=== PATIENT | male | born 1980 | race African-American/Black ===

== ENCOUNTER 2025-06-05 22:17 | Inpatient (IN) | payer OTHER, SELFPAY ==
--- OUTSIDE RECORDS SUMMARY | 2025-06-05 22:24 | XMS_ITS | Continuity of Care Document ---
Author Name [facility] Organization [facility] Care Team Providers Care Special Delivery Messenger Name Role Phone [facility] Unavailable Unavailable Medications Combined list of outpatient medications from Department of Defense and Veterans Affairs facilities.Medications provided include 1) outpatient medications from the last 15 months, and 2) patient-reported medications. Medication Details Route Status Patient Instructions Prescription Expires Prescription Number Last Dispense Date Ordering Provider Order Date Order Qty Source fexofenadin e 180 mg oral tablet fexofena dine 180 mg oral tablet Start Date: 09/22/19 Status: Ordered Repeat number: 1 Ordered 2019 No Facilit y Access fluticasone 50 mcg/inh nasal spray fluticas one 50 mcg/inh nasal spray Start Date: 09/22/19 Status: Ordered Repeat number: 1 Ordered 2019 No Facilit y Access Allergies, Adverse Reactions, Alerts Combined list of allergies from Department of Defense and Veterans Affairs facilities. It does not include entries that were removed or entered in error. Substance Category Reaction Severity Reaction type Status Date Reported Comments Source No Known Allergies Drug allergy (disorder) active 09/06/2019 [place] [address] Immunizations Combined list of available immunizations from the Department of Defense and Veterans Affairs facilities. Immunization Series Date Given Administered By Site Reaction Lot Number CVX Code Drug Accident Report Clerk Status Comments Source SARS-COV-2 (COVID-19) vaccine, mRNA, spike protein, LNP, preservative free, 30 mcg/0.3mL dose 2 2020 [id number] [place], [employer] (PFR) [facility] SARS-COV- 2 (COVID-19 ) vaccine, mRNA, spike protein, LNP, preservat neeta free, 30 mcg/0.3mL dose [facility] SARS-COV-2 (COVID-19) vaccine, mRNA, spike protein, LNP, preservative free, 30 mcg/0.3mL dose 1 2020 [id number] [employer] (PFR) [facility] ed SARS-COV- 2 (COVID-19 ) vaccine, mRNA, spike protein, LNP, preservat neeta free, 30 mcg/0.3mL dose DoD influenza, injectable, quadrivalent, contains preservative 3 2020 [id number] 158 [facility] (SKB) complet ed influenza , injectabl e, quadrival ent, contains preservat neeta DoD SARS-COV-2 (COVID-19) vaccine, UNSPECIFIED 0 2020 213 () Not Given SARS-COV- 2 (COVID-19 ) vaccine, UNSPECIFI ED DoD influenza virus vaccine, unspecified formulation 1 2020 88 Transcribed (TRS) complet ed influenza virus vaccine, unspecifi ed formulati on DoD poliovirus vaccine, inactivated 1 2018 [id number] Sanofi Paste[employer] ([facility]) complet ed polioviru s vaccine, inactivat ed DoD meningococcal polysaccharid e (groups A, C, Y and W-135) diphtheria toxoid conjugate vaccine (MCV4P) 1 2018 [id number] Sanofi Pasteur ([facility]) complet ed meningoco ccal polysacch aride (groups A, C, Y and W-135) diphtheri a toxoid conjugate vaccine (MCV4P) DoD tetanus toxoid, reduced diphtheria toxoid, and acellular pertu is vaccine, adsorbed 1 2018 [id number] [facility] (SKB) complet ed tetanus toxoid, reduced diphtheri a toxoid, and acellular pertussis vaccine, adsorbed DoD Adenovirus, type 4 and type 7, live, oral 1 2018 [id number] 143 [facility] (BRR) complet ed Adenoviru s, type 4 and type 7, live, oral DoD Influenza, injectable, quadrivalent, preservative free 1 2018 [id number] 150 [employer] (SEQ) complet ed Influenza , injectabl e, quadrival ent, preservat neeta free DoD measles virus vaccine 0 2018 05 () Not Given measles virus vaccine DoD rubella virus vaccine 0 2018 06 () Not Given rubella virus vaccine DoD mumps virus vaccine 0 2018 07 () Not Given mumps virus vaccine DoD varicella virus vaccine 0 2018 21 () Not Given varicella virus vaccine DoD hepatitis B vaccine, unspecified formulation 0 2018 45 () Not Given hepatitis B vaccine, unspecifi ed formulati on DoD hepatitis A vaccine, adult dosage 0 2018 52 () Not Given hepatitis A vaccine, adult dosage DoD Encounters Combined list of: 1) Encounters from Department of Veterans Affairs facilities going backup to the last 18 months, not all VA inpatient encounters are included; 2) Encounters from the Department of Defense facilities going backup to 280 months. Location Location Details Encounter Type Encounter Number Reason For Visit Attending Provider ADM Date DC Date Status Disposition [place] [address](Hea ring Conservat ion, BMT) OUTPATIENT [id number] DREW NOBLE 09/04 Released w/o Limitations [facility] [place] [address](H earing Conserv ation, BMT) [place] [address](Opt ometry Clinic BMT [facility]) OUTPATIENT [id number] LILLIAM CLARK 09/04 Released w/o Limitations [facility] [place] [address](O ptometr y Clinic BMT [facility]) [place] [address](Tra [facility]) OUTPATIENT [id number] Notes Entered by: JORDAN SCHULTZ 05 Sep 2019 1529 ------- ------- ------- ------- -- Strep Prophyl TOMMY Meléndez 09/05 Released w/o Limitations [facility] [place] [address]([facility] d) [place] [address](JACKSON Armendariz) OUTPATIENT [id number] Notes Entered by: MARY MADRID 13 Sep 2019 1000 ------- ------- ------- ------- -- CANDIDO Romero 09/13 Released w/o Limitations [facility] [place] [address](Chandrakant Armendariz) [place] [address]([facility]) OUTPATIENT [id number] Notes Entered by: Simone PANDYA 22 Sep 2019 1101 ------- ------- ------- ------- -- ?Common Cold=?F MIKE HERNANDEZ 09/22 [facility]itations [facility] [place] [address]([facility] simone) [facility] Blue) OUTPATIENT [id number] needs TERRIE Garcia 11/30 Released with Work/Duty Limitations [facility](P [facility] Multi [facility] Blue) [place] [address](AFN G [address]FM) OUTPATIENT [id number] Notes Entered by: GABRIEL SMITH 30 Jun 2020 0815 ------- ------- ------- ------- -- prescri ption GABRIEL SMITH 06/30 Released w/o Limitations [facility] [place] [address](A FNG [address] S[address]FM) [place] [address](AFN G [address] Sq-FM) OUTPATIENT [id number] Notes Entered by: TETO SIMPSON 05 Feb 2021 0956 ------- ------- ------- ------- -- Annual Audiogr am GABRIEL SMITH 02/05 Released w/o Limitations [facility] [place] [address](A FNG [address] Sq-FM) [place] [address](AFN G [address] Sq-FM) OUTPATIENT [id number] Notes Entered by: GABRIEL SMITH 27 Jul 2021 0826 ------- ------- ------- ------- -- COVID vaccine GABRIEL SMITH 07/27 [facility] [place] [address](A FNG [address]q-FM) [place] [address](AFN G [address]FM) OUTPATIENT [id number] Notes Entered by: JM SHELDON 18 Jan 2022 1409 ------- ------- ------- ------- -- Audiogr am/PHAQ GABRIEL SMITH NOONE 01/18 [facility] Lim[facility] [place] [address](A FNG [address] Med Sq-FM) [id number] MDG Care Not Rendered [id number] 09/26 Discharge Disposition: Home or Self Care [id number] MDG [facility] Between Visit 03/21 Discharge Disposition: Home or Self Care zzJoint Umbrell a Org Procedures Combined list of: 1) Procedures from Department of Veterans Affairs facilities going back up to thelast 18 months, not all [place] non-surgical procedures are included; 2) All procedures from the Department of Defense facilities. Procedure Procedure Type Code Date Perfomer Comments Sourc e No data available for this section Ambulato ry Pharmacy Threshold Audiogram (Pure Tone) Threshold Audiogram (Pure Tone) 22211 DREW NOBLE [facility] Screening Test Of Visual Acuity, Quantitative, Bilateral Screening Test Of Visual Acuity, Quantitative, Bilateral [address] Supervised Injection Intramuscular Supervised Injection Intramuscular 28209 JORDAN LAMB [facility] Social History Combined list of available smoking, tobacco, and other social history from Department of Defense and Veterans Affairs facilities. Social History Type Response Date Comment Sourc e Sex Representation Male (finding) 08/03/2020 Un known Organization Sexual Orientation Ambula tory Pharmacy Gender identity Ambulator y Pharmacy This section is an empty social history section. DoD Assessment and Plan Combined list of future care activities from Department of Defense and Veterans Affairs facilities (e.g., assessment and plan notes, appointments, orders, and referrals). Additional future care activities may be listed in the Plan of Care section. Result Assessment and Plan Date Source Assessment and Plan No data available for this section 06/06/2025 Ambulatory Pharmacy Functional Status Combined list of recent functional and cognitive assessments recorded at Department of Defense and Veterans Affairs (VA).VA Functional [place] Measurement (FIM) Scale: 1 = Total Assistance (Subject = 0% +), 2 = Maximal Assistance (Subject = 25% +), 3 = Moderate Assistance (Subject = 50% +), 4 = Minimal Assistance (Subject = 75% +), 5 = Supervision, 6 = Modified [place] (Device), 7 = Complete [place] (Timely, Safely). Assessment Date/Time Source Assessment Type Assessment Skill Assessment Score Assessment Details No data available for this section
--- OUTSIDE RECORDS SUMMARY | 2025-06-05 22:25 | XMS_ITS | Referral Summary ---
Author Organization [facility] Address [address] [place] [address] Phone Care Team Providers Care Stamp Maker Name Role Phone Unavailable Primary Care Provider Unavailabl e Social History Tobacco Use Types Packs/Day Years Used Date Smoking Tobacco: Never Assessed Sex and Gender Information Value Date Recorded Sex Assigned at Not on file Legal Sex Male 10:33 AM EST Gender Identity Not on file Sexual Orientation Not on file Plan of Treatment Not on file
--- OUTSIDE RECORDS SUMMARY | 2025-06-05 22:25 | XMS_ITS | Clinical Summary ---
Author Organization [facility] Address [address] [place] [address] Phone Care Team Providers Care Elevator Erector Helper Name Role Phone Ildefonso Heredia MD Primary Care Provider + [phone] Allergies No known active allergies Active Problems Problem Noted Date Diagnosed Date Alcoholism 07/29/2015 Overview (10/15/2015): Alcoholism Abdominal pain 07/29/2015 Overview (10/15/2015): Abdominal pain - RUQ Encounters Date Type Department Care Team Description 04/08/2025 3:47 AM EDT - 04/08/2025 11:00 AM EDT Emergency [facility] [address] [place] [phone] Germania Adams MD, MPH Kurt Bazan MD Discharge Disposition: Home or Self Care from Last 3 Months Social History Tobacco Use Types Packs/Day Years Used Date Smoking Tobacco: Never Assessed Education Answer Date Recorded Are you interested in more education? Not on gautam e 04/08/2025 Are you concerned about learning? Not on file 04/08/2025 No 04/08/2025 No 04/08/2025 Digital Access Answer Date Recorded No 04/08/2025 No 04/08/2025 Reliable internet access at home? Not on file 04/08/2025 Device with a working camera? Not on file Intimate Partner Violence Answer Date R ecorded Are you denied basic needs s uch as food, clothing, or medical care? No 04/08/2025 In the past 12 months have y ou been in a relationship with a person who hurts, threatens, or tries to control you? No 04/08/2025 Are you denied basic needs s uch as food, clothing, or medical care? No 04/08/2025 In the past 12 months have y ou been in a relationship with a person who hurts, threatens, or tries to control you? No 04/08/2025 Sex and Gender Information Value Date Recorded Sex Assigned at Male 04/12/2025 3:59 PM EDT Legal Sex Male 3:11 PM EDT Gender Identity Male 04/12/2025 3:59 PM EDT Sexual Orientation Choose not to disclose 2024 3:59 PM EDT Last Filed Vital Signs Vital Sign Reading Time Taken Comments Blood Pressure 163/90 04/08/2025 10:54 AM EDT Pulse 97 04/08/2025 10:54 AM EDT Temperature 37 C (98.6 F) 04/08/2025 8:39 AM EDT Respiratory Rate 17 04/08/2025 10:54 AM EDT Oxygen Saturation 100% 04/08/2025 10:54 AM EDT Inhaled Oxygen Concentration - - Weight - - Height - - Body Mass Index - - Plan of Treatment Not on file Medical Devices Not on file Procedures Procedure Name Priority Date/Time Associated Diagnosis Comments TOXICOLOGY SCREEN, URINE STAT 04/08/2025 7:21 AM EDT URINALYSIS W/REFLEX URINE CULTURE STAT 04/08/2025 7:21 AM EDT ECG 12-LEAD STAT 04/08/2025 4:40 AM EDT ETHANOL, BLOOD STAT 04/08/2025 4:20 AM EDT LFTS (HEPATIC PANEL) STAT 04/08/2025 4:20 AM EDT BASIC METABOLIC PANEL STAT 04/08/2025 4:20 AM EDT CBC AND DIFFERENTIAL STAT 04/08/2025 4:20 AM EDT from Last 3 Months Results * (ABNORMAL) Urinalysis w/reflex Urine Culture (04/08/2025 7:21 AM EDT) COLOR LT YELLOW(A) Yellow [facility] CLARITY Clear Clear [facility] SPECIFIC GRAVITY 1.010 1.001 - 1.030 [facility] BLOOD Negative Negative [facility] BILI Negative Negative [facility] KETONES 2+(A) Negative [facility] GLUCOSE Negative Negative [facility] URINE PROTEIN Negative Negative [facility] PH 5.5 5 - 8 [facility] Leukocyte esterase, ur Negative Negative [facility] NITRITE Negative Negative [facility] UROBILINOGEN Negative Negative [facility] RBC <1 0 - 2 /hpf [facility] WBC 3 0 - 9 /hpf [facility] BACTERIA NONE SEEN NONE SEEN /hpf [facility] SQUAMOUS CELLS <1 0 - 4 /hpf [facility] Urine (Urine) 04/08/2025 7:2 1 AM EDT 04/08/2025 7:28 AM EDT us Germania Adams MD, MPH URINE ORDERABLES Final Result [facility] [address] [place] [address] * Toxicology screen, urine (04/08/2025 7:21 AM EDT) URINE BENZODIAZEPINE Negative Negative [facility] Comment: CUT OFF VALUE FOR POSITIVE RESULTS: 200 NG/ML Unconfirmed results, FOR MEDICAL SCREENING PURPOSES ONLY. URINE COCAINE METAB Negative Negative [facility] Comment: Cut off value for positive results: 300 ng/mL Unconfirmed results, FOR MEDICAL SCREENING PURPOSES ONLY. URINE AMPHETAMINES Negative Negative [facility] Comment: CUT OFF VALUE FOR POSITIVE RESULTS: 1000 NG/ML Unconfirmed results, FOR MEDICAL SCREENING PURPOSES ONLY. URINE CANNABINOIDS Negative Negative [facility] Comment: CUT OFF VALUE FOR POSITIVE RESULTS: 50 NG/ML Unconfirmed results, FOR MEDICAL SCREENING PURPOSES ONLY. URINE OPIATES Negative Negative [facility] Comment: Cut off value for positive results: 300 ng/mL Unconfirmed results, FOR MEDICAL SCREENING PURPOSES ONLY. URINE BARBITURATES Negative Negative [facility] Comment: CUT OFF VALUE FOR POSITIVE RESULTS: 200 NG/ML Unconfirmed results, FOR MEDICAL SCREENING PURPOSES ONLY. URINE OXYCODONE Negative Negative [facility] Comment: CUT OFF VALUE FOR POSITIVE RESULTS: 100 NG/ML Unconfirmed results, FOR MEDICAL SCREENING PURPOSES ONLY. UR TRICYCLICS Negative Negative [facility] Comment: Cut off value for positive results: 300 ng/mL Unconfirmed results, FOR MEDICAL SCREENING PURPOSES ONLY. URINE METHADONE Negative Negative [facility] Comment: Cut off value for positive results: 300 ng/mL Unconfirmed results, FOR MEDICAL SCREENING PURPOSES ONLY. URINE BUPRENORPHINE Negative Negative [facility] Comment: Cut-off concentration for Urine Buprenorphine is 5 ng/mL. Unconfirmed results, FOR MEDICAL SCREENING PURPOSES ONLY. Fentanyl, urine Negative Negative [facility] Comment: Cut-off concentration for Urine Fentanyl is 2 ng/mL. Unconfirmed results, FOR MEDICAL SCREENING PURPOSES ONLY. Urine (Urine) 04/08/2025 7:2 1 AM EDT 04/08/2025 7:28 AM EDT Germania Adams MD, MPH URINE ORDERABLES Final Result [facility] [address] [place], [place] [id number] * ECG 12-LEAD (04/08/2025 4:40 AM EDT) Ventricular Rate EKG/MIN 89 BPM [facility] Atrial Rate 89 BPM [facility] VT Interval 140 ms [facility] QRS Duration 82 ms [facility] QT Interval 404 ms [facility] QTC Interval 491 ms [facility] P [place]more 10 degrees [facility] R Wave [place] 32 degrees [facility] T Wave [place] 37 degrees [facility] 04/08/2025 4:40 AM EDT Narrative [facility] - 04/09/2025 8:06 PM EDT POOR DATA QUALITY, INTERPRETATION MAY BE ADVERSELY AFFECTED NORMAL SINUS RHYTHM MINIMAL VOLTAGE CRITERIA FOR LVH, MAY BE NORMAL VARIANT ( Sokolow-Heath ) PROLONGED QT BASELINE ARTIFACT ABNORMAL ECG NO PREVIOUS ECGS AVAILABLE Dunia Geiger PA-C, MPH ECG ORDERABLES Final Result Performing Organization Address [facility]/ZIP Co de Phone Number [facility] * Ethanol, blood (04/08/2025 4:20 AM EDT) ETHANOL <10 <10 mg/dL [facility] Blood 04/08/2025 4:20 AM EDT 04/08/2025 6:41 AM EDT Dunia Geiger PA-C, MPH LAB BLOOD ORDERABLES F inal Result Performing Organization Address [facility] de Phone Number [place] [phone] * (ABNORMAL) LFTs (hepatic panel) (04/08/2025 4:20 AM EDT) ALBUMIN 4.8 3.5 - 4.8 g/dL [facility] TOTAL BILIRUBIN 1.1(H) 0.0 - 1.0 mg/dL [facility] DIRECT BILIRUBIN 0.4 0 - 0.4 mg/dL [facility] ALKALINE PHOSPHATASE 83 27 - 129 U/L [facility] AST 134(H) 6 - 40 U/L [facility] ALT 156(H) 10 - 49 U/L [facility] TOTAL PROTEIN 8.3(H) 5.7 - 8.2 g/dL [facility] GLOBULIN 3.5 1.9 - 4.1 g/dL [facility] Blood 04/08/2025 4:20 AM EDT 04/08/2025 6:41 AM EDT Dunia Geiger PA-C, MPH LAB BLOOD ORDERABLES F inal Result [facility] [address] [place] [address] * (ABNORMAL) CBC and differential (04/08/2025 4:20 AM EDT) WBC 2.97(L) 4.00 - 11.00 K/uL [facility] RBC 4.95 4.50 - 5.90 M/uL [facility] HGB 14.5 13.5 - 17.5 g/dL [facility] HCT 44.0 41.0 - 53.0 % [facility] PLT 148(L) 150 - 450 K/uL [facility] MCV 88.9 80.0 - 100.0 fL [facility] MCH 29.3 27.0 - 31.0 pg [facility] MCHC 33.0 32.0 - 36.0 g/dL [facility] RDW 13.2 11.5 - 14.5 % [facility] MPV 11.3 8.4 - 12.0 fL [facility] NRBC 0.00 0.00 /100 WBCs [facility] DIFF METHOD Auto [facility] NEUTS 59.7 48.0 - 76.0 % [facility] LYMPHS 27.6 18.0 - 41.0 % [facility] MONOS 10.4 4.0 - 11.0 % [facility] EOS 1.7 0.0 - 5.0 % [facility] BASOS 0.3 0.0 - 1.5 % [facility] Granulocytes, immature (%) 0.3 0.0 - 0.9 % [facility] ABSOLUTE NEUTS 1.77(L) 1.92 - 7.60 K/uL [facility] ABSOLUTE LYMPHS 0.82 0.72 - 4.10 K/uL [facility] ABSOLUTE MONOS 0.31 0.16 - 1.10 K/uL [facility] ABSOLUTE EOS 0.05 0.00 - 0.50 K/uL [facility] ABSOLUTE BASOS 0.01 0.00 - 0.15 K/uL [facility] Granulocytes, immature 0.01 0.00 - 0.09 K/uL [facility] Blood 04/08/2025 4:20 AM EDT 04/08/2025 6:41 AM EDT Dunia Geiger PA-C, MPH LAB BLOOD ORDERABLES F inal Result Performing Organization Address City/[facility]/ZIP Co de Phone Number [facility] [address] [place] [address] * Basic metabolic panel (04/08/2025 4:20 AM EDT) SODIUM 138 136 - 145 mmol/L [facility] CHLORIDE 100 95 - 106 mmol/L [facility] POTASSIUM 3.9 3.5 - 5.2 mmol/L [facility] CO2 23 20 - 31 mmol/L [facility] BUN 9 9 - 23 mg/dL [facility] CREATININE 1.14 0.50 - 1.30 mg/dL [facility] GLUCOSE 94 74 - 106 mg/dL [facility] CALCIUM 10.1 8.7 - 10.4 mg/dL [facility] EGFR 82 >60 mL/min/1.7 3m2 [facility] Comment:Estimated glomerular filtration rate calculated using the CKD-EPI refit equation. ANION GAP 15 3 - 17 mmol/L [facility] Blood 04/08/2025 4:20 AM EDT 04/08/2025 6:41 AM EDT us Dunia Geiger PA-C, MPH LAB BLOOD ORDERABLES F inal Result Performing Organization Address City/[facility]/ZIP Co de Phone Number [facility] [address] [place], [place] [phone] from Last 3 Months Care Teams Elevator Erector Helper Relationship Specialty Start Date End Date Ildefonso Heredia MD [address] [place] [phone] PCP - General Internal Medicine 04/08/25 Additional Source Comments The information contained in this document represents components of the legal health record. It is not the complete legal health record.[facility]
[2025-06-06 00:38] VITALS: BP 144/86; PULSE 72; RESP 18; TEMP 36.5; O2SAT 100
--- NOTE | 2025-06-06 01:18 | PC.ADMIT ---
Addendum entered by Danny Keenan RN 06/06/25 05:00: Addendum: Patient legal status is 12b. Original Note: Jose Luis arrived via stretcher in the company of 2 EMT staff on M-5 at 2245 hours, having transferred to [facility] in [facility]. His skin is intact, he denies any pain. He signed a CV. Jose Luis presented at [facility] on 06/04/25 with complains of headache, paranoia, command auditory hallucinations. Per hospital report, his drove him to the hospital after he started complaining that he neighbors in the apartment complex were spying on him, and he was concerned that someone might break into their apartment. 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 Patient started consuming alcohol daily, sometimes starting drinking in the morning. Patient stated to this signwriter that he has lost about 10 pounds since November, and has been eating just one meal a day. He expressed concerns that he suspects that he might be dehydrated, and is worried about his kidney function and liver function tests. Patient stated that his reduced food intake was not due to lack of food, rather that he was not feeling hungry. Patient endorses episodes of insomnia, especially when he gets stressed. Patient was oriented to the unit, given a sandwich and shown his room. Patient was placed on 15 minutes checks.
[2025-06-06 08:00] VITALS: BP 133/81; PULSE 77; RESP 16; TEMP 36.6; O2SAT 100
[2025-06-06 08:49] LABS: Hemoglobin A1C 123.8550 umol/L; Total Hemoglobin (HGBA1C) 3302.4871 umol/L
[2025-06-06 08:53] LABS: Alanine Aminotransferase 66 U/L (0-40); Albumin Level 4.4 g/dL (3.5-5.0); Alkaline Phosphatase 56 U/L (39-117); Anion Gap 10 (12-20); Aspartate Amino Transferase 46 U/L (5-37); Blood Urea Nitrogen 10 mg/dL (9-16); Calcium 9.4 mg/dL (8.4-10.2); Carbon Dioxide 28 mmol/L (22-29); Chloride 107 mmol/L (96-108); Cholesterol 145 mg/dL (<200); Estimated Glomerular Filt Rate > 60; HDL Cholesterol 49 mg/dL (>40); Potassium 4.2 mmol/L (3.3-5.1); Sodium 141 mmol/L (135-145); Total Protein 7.1 g/dL (6.5-8.0); Triglycerides 71 mg/dL (<150)
--- NOTE | 2025-06-06 09:17 | P.HPPS_ITS ---
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 spoke with quite some time he's been hearing voices...he tells me he's hearing voices, people talking to him... take him away from her, want to kill him... we're going to make you suffer; you're going to ... 3 months ago, same incident, called 911 ongoing, but mild... but got worse 1 week ago, became intense, started sleeping in latter day and praying...maybe the pastors in the [facility] since he did not give them money... awake in the night 2.5 months ago first time ever c/o AH. Started to boxing in the space, saying they're here, they are right outside...they want to see us... wake up in middle of night he's awake, saying he's afraid they will come lost his job, lot of stress and drinking a lot, about 1 bottle of wine daily... i told him, if you don't stop drinking i'm leaving you... coincide with alcohol? He stopped drinking 2.5 weeks ago and flared up again... sleeping at latter day since i have attackers that coming for me... called her from latter day where he'd slept overnight, i'm seeing you in the bedroom...naked...and who's that behind you...you are in the room with someone... past 2-3 days becoming worse...turning off phone since feels people monitoring his behavior and tracking him...also thinking he's being monitored from his laptop fired from 3 jobs. at jobs he's getting fired (after 1 week)...boss is mean to me.. was not feeling well, tension in my head... 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 DOES NOT REMEMBER the following: Per hospital report, his drove him to the hospital after he started complaining that he neighbors in the apartment complex were spying on him, and he was concerned that someone might break into their apartment. yes, maybe hallucinating? 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 no hx of unsafe behavior toward self of others a few days ago, patient was at latter day and called police said there are people here at the latter day door and want to harm me Patient has had recent major stressors including losing his job, and also losing his business. Patient started consuming alcohol daily, sometimes starting drinking in the morning. Patient stated to this appeals writer that he has lost about 10 pounds since November, and has been eating just one meal a day. He expressed concerns that he suspects that he might be dehydrated, and is worried about his kidney function and liver function tests. Patient stated that his reduced food intake was not due to lack of food, rather that he was not feeling hungry. Patient endorses episodes of insomnia, especially when he gets stressed. Patient was oriented to the unit, given a sandwich and shown his room. Patient was placed on 15 minutes checks. Diagnostics Vital Signs (24Hr): Vital Signs - 24 hr 06/06/25 00:38 06/06/25 08:00 Temperature 97.7 F 97.9 F Pulse Rate 72 77 Respiratory Rate 18 16 Blood Pressure 144/86 H 133/81 Pulse Oximetry 100 100 Oxygen Delivery Method Room Air Room Air Labs 06/06/25 08:06 Labs: Laboratory Results - last 48 hr 06/06/25 08:06 Sodium 141 Potassium 4.2 Chloride 107 Carbon Dioxide 28 Anion Gap 10 L BUN 10 Creatinine 0.97 Estim Creat Clear Calc TNP Estimated GFR > 60 Random Glucose 108 Estimat Average Glucose 114 Hemoglobin A1c % 5.6 Calcium 9.4 Total Bilirubin 0.6 AST 46 H ALT 66 H Alkaline Phosphatase 56 Total Protein 7.1 Albumin 4.4 Triglycerides 71 Cholesterol 145 LDL Cholesterol, Calc 82 HDL Cholesterol 49 Meds/Allergies Meds Home Medications ?Medication ?Instructions ?Recorded ?Confirmed ?Type No Known Home Meds 06/06/25 06/06/25 Hi story Allergies Allergies Allergy/AdvReac Type Severity Reaction Status Date / Time crab Allergy Severe Itching Verified 06/05/25 23:09 shellfish derived Allergy Fainting Verified 06/05/25 23:09 Assessment & Plan Statement Statement: I have reviewed the history and physical and performed a pertinent examination on my patient. No changes have occurred unless specified. If the History and Physical was not performed prior to admission, the Hospitalist's service will be consulted for completing the admission physical. Time Spent With Patient Time: Total time managing care of this patient today ____ minutes.
--- NOTE | 2025-06-06 09:42 | HO.PM.IMCN ---
History of Present Illness Data of Consult Service Date: 06/06/25 Primary Care Provider: Nonstaff Physician HPI Reason for consult: Medical evaluation 45-year-old male with a past medical history of thyroiditis in 2016, acid reflux, EtOH use presented to [facility] ED with his with auditory hallucinations and acute psychosis. He denies any past medical history of mental illness, no surgical history. EKG with normal sinus rhythm, CBC with mild anemia, metabolic panel within normal limits. Negative tox screen. Normal head CT. On exam he denies any medical concerns. Denies any shortness of breath, dizziness, lightheadedness or any other concerning symptoms. Review of Systems Review of Systems: Denies any shortness of breath, chest pain, dizziness, lightheadedness, abdominal pain or discomfort, nausea vomiting or diarrhea PMFSH Social History Household Members: Spouse Housing: Apartment Do you presently have visiting nurse or other home services: No Patient Tobacco Use Status: Never used Tobacco e-Cigarette/Vaping Use: Never Used Second Hand Smoke Exposure: No Currently Displaying Signs/Symptoms of Drug Intoxication Withdrawal: No Have you been hit, kicked, punched, or otherwise hurt by someone within the past year? If so, by whom?: No Do you feel safe in your current relationship?: Yes Is there a partner from a previous relationship who is making you feel unsafe now?: No Are you made to feel afraid or neglected: No Advance Directives: No Advance Directives Information Provided: No Advance Directives on File: No Do you have thoughts of harming others: None Do you have a plan to hurt others: No Plan Recently lost weight without trying: Yes How much weight loss: 2-13 pounds Eating poorly because of decreased appetite: Yes Nutrition screen score: 4 Poor oral hygiene: No Meds Allergies Allergy/AdvReac Type Severity Reaction Status Date / Time crab Allergy Severe Itching Verified 06/05/25 23:09 shellfish derived Allergy Fainting Verified 06/05/25 23:09 Active Medications: Current Medications Acetaminophen (Acetaminophen 325 Mg Tablet) 650 mg PO Q6H PRN PRN Reason: Headache/Pain, Scale 1-10 Al Hydroxide/Mg Hydroxide (Magnesium Hydrox/Alum Hydrox 30 Ml Oral.Susp) 30 ml PO Q6H PRN PRN Reason: Heartburn/Nausea Hydroxyzine HCl (Hydroxyzine Hcl 25 Mg Tablet) 25 mg PO Q6H PRN PRN Reason: mild anxiety Magnesium Hydroxide (Milk Of Magnesia 30 Ml Oral.Susp) 30 ml PO DAILY PRN PRN Reason: Constipation Nicotine Polacrilex (Nicotine Polacrilex 2 Mg Gum) 4 mg BUCCAL Q2H PRN PRN Reason: Nicotine Cravings Olanzapine (Olanzapine 5 Mg Tablet) 5 mg PO Q4H PRN PRN Reason: agitation Trazodone HCl (Trazodone Hcl 50 Mg Tablet) 50 mg PO BEDTIME MRX1 PRN PRN Reason: Insomnia Home Medications ?Medication ?Instructions ?Recorded ?Confirmed ?Last Taken ?Type No Known Home Meds 06/06/25 06/06/25 Unknown History Physical Exam Vital Signs and Narrative: Vital Signs: Last Vital Signs Temp 97.9 F 06/06/25 08:00 Pulse 77 06/06/25 08:00 Resp 16 06/06/25 08:00 BP 133/81 06/06/25 08:00 Pulse Ox 100 06/06/25 08:00 O2 Del Method Room Air 06/06/25 08:00 Alert and oriented X3, able to give good history. Maintains good eye contact Neuro: CN II-X11 intact, no deficits, visual acuity intact EYES: PERRLA, EOM intact ENT: Hearing intact, lips moist Cardiac: S1 S2 RRR, No ectopy Pulmonary: lungs clear to auscultation, No increased WOB. Abdominal: BS active in all 4 quadrants, no guarding or tenderness MSK: Strength 5/5 upper and lower extremities : Deferred Extremities: No edema in lower extremities. Psych: mood stable, Quiet and cooperative. Skin: Warm and dry, Intact Results Labs 06/06/25 08:06 Labs: Laboratory Results - last 24 hr 06/06/25 08:06 Anion Gap 10 L Estim Creat Clear Calc TNP Estimated GFR > 60 Random Glucose 108 Estimat Average Glucose 114 Hemoglobin A1c % 5.6 Calcium 9.4 Total Bilirubin 0.6 AST 46 H ALT 66 H Alkaline Phosphatase 56 Total Protein 7.1 Albumin 4.4 Triglycerides 71 Cholesterol 145 LDL Cholesterol, Calc 82 HDL Cholesterol 49 Assessment and Plan (1) Psychosis: Status: Acute Plan Auditory hallucinations/psychosis Treatment per psychiatric team Prediabetes Recent A1c 5.6 Discussed diet and exercise with the patient. Thank you for allowing me to participate in the care of this patient. Signing off at this time. Please reconsult of any acute concerns or issues arise
[2025-06-06 20:00] VITALS: BP 160/90; PULSE 85; TEMP 36; O2SAT 100
[2025-06-07 08:00] VITALS: BP 142/80; PULSE 73; RESP 18; TEMP 36.5; O2SAT 100
--- NOTE | 2025-06-07 09:33 | HO.PSYCHPN ---
Subjective Subjective Date of Service: 06/13/25 Reason For Visit: Psychosis Interim History: met with patient; discussed with team Diagnostics Vital Signs (24Hr): Vital Signs - 24 hr 06/06/25 20:00 06/07/25 08:00 Temperature 96.8 F 97.7 F Pulse Rate 85 73 Respiratory Rate 18 Blood Pressure 160/90 H 142/80 H Pulse Oximetry 100 100 Oxygen Delivery Method Room Air Room Air Labs 06/06/25 08:06 Labs: Laboratory Results - last 48 hr 06/06/25 08:06 Sodium 141 Potassium 4.2 Chloride 107 Carbon Dioxide 28 Anion Gap 10 L BUN 10 Creatinine 0.97 Estim Creat Clear Calc TNP Estimated GFR > 60 Random Glucose 108 Estimat Average Glucose 114 Hemoglobin A1c % 5.6 Calcium 9.4 Total Bilirubin 0.6 AST 46 H ALT 66 H Alkaline Phosphatase 56 Total Protein 7.1 Albumin 4.4 Triglycerides 71 Cholesterol 145 LDL Cholesterol, Calc 82 HDL Cholesterol 49 Medications Medications Current Medications Acetaminophen (Acetaminophen 325 Mg Tablet) 650 mg PO Q6H PRN PRN Reason: Headache/Pain, Scale 1-10 Al Hydroxide/Mg Hydroxide (Magnesium Hydrox/Alum Hydrox 30 Ml Oral.Susp) 30 ml PO Q6H PRN PRN Reason: Heartburn/Nausea Hydroxyzine HCl (Hydroxyzine Hcl 25 Mg Tablet) 25 mg PO Q6H PRN PRN Reason: mild anxiety Magnesium Hydroxide (Milk Of Magnesia 30 Ml Oral.Susp) 30 ml PO DAILY PRN PRN Reason: Constipation Nicotine Polacrilex (Nicotine Polacrilex 2 Mg Gum) 4 mg BUCCAL Q2H PRN PRN Reason: Nicotine Cravings Olanzapine (Olanzapine 5 Mg Tablet) 5 mg PO Q4H PRN PRN Reason: agitation Trazodone HCl (Trazodone Hcl 50 Mg Tablet) 50 mg PO BEDTIME MRX1 PRN PRN Reason: Insomnia Allergies Allergies Allergy/AdvReac Type Severity Reaction Status Date / Time crab Allergy Severe Itching Verified 06/05/25 23:09 shellfish derived Allergy Fainting Verified 06/05/25 23:09 Assessment & Plan Assessment & Plan (1) Psychosis: Status: Acute Code(s): F29 - Unspecified psychosis not due to a substance or known physiological condition Plan Auditory hallucinations/psychosis Treatment per psychiatric team Prediabetes Recent A1c 5.6 Discussed diet and exercise with the patient. Thank you for allowing me to participate in the care of this patient. Signing off at this time. Please reconsult of any acute concerns or issues arise Time Spent With Patient Time: Total time managing care of this patient today ____ minutes.
[2025-06-07 19:46] VITALS: BP 138/71; PULSE 86; O2SAT 100
[2025-06-08 08:00] VITALS: BP 137/85; PULSE 80; TEMP 36.1; O2SAT 100
[2025-06-08 20:00] VITALS: BP 140/103; PULSE 99; RESP 15; TEMP 35.9; O2SAT 98
--- NOTE | 2025-06-08 22:35 | HO.PSYCHPN ---
Subjective Subjective Date of Service: 06/08/25 Reason For Visit: Psychosis Diagnostics Vital Signs (24Hr): Vital Signs - 24 hr 06/08/25 08:00 06/08/25 20:00 Temperature 96.9 F 96.7 F L Pulse Rate 80 99 Respiratory Rate 15 Blood Pressure 137/85 140/103 H Pulse Oximetry 100 98 Oxygen Delivery Method Room Air Labs 06/06/25 08:06 Medications Medications Current Medications Acetaminophen (Acetaminophen 325 Mg Tablet) 650 mg PO Q6H PRN PRN Reason: Headache/Pain, Scale 1-10 Al Hydroxide/Mg Hydroxide (Magnesium Hydrox/Alum Hydrox 30 Ml Oral.Susp) 30 ml PO Q6H PRN PRN Reason: Heartburn/Nausea Hydroxyzine HCl (Hydroxyzine Hcl 25 Mg Tablet) 25 mg PO Q6H PRN PRN Reason: mild anxiety Magnesium Hydroxide (Milk Of Magnesia 30 Ml Oral.Susp) 30 ml PO DAILY PRN PRN Reason: Constipation Nicotine Polacrilex (Nicotine Polacrilex 2 Mg Gum) 4 mg BUCCAL Q2H PRN PRN Reason: Nicotine Cravings Olanzapine (Olanzapine 5 Mg Tablet) 5 mg PO Q4H PRN PRN Reason: agitation Trazodone HCl (Trazodone Hcl 50 Mg Tablet) 50 mg PO BEDTIME MRX1 PRN PRN Reason: Insomnia Allergies Allergies Allergy/AdvReac Type Severity Reaction Status Date / Time crab Allergy Severe Itching Verified 06/05/25 23:09 shellfish derived Allergy Fainting Verified 06/05/25 23:09 Assessment & Plan Assessment & Plan (1) Psychosis: Status: Acute Code(s): F29 - Unspecified psychosis not due to a substance or known physiological condition Plan Auditory hallucinations/psychosis Treatment per psychiatric team Prediabetes Recent A1c 5.6 Discussed diet and exercise with the patient. Thank you for allowing me to participate in the care of this patient. Signing off at this time. Please reconsult of any acute concerns or issues arise Time Spent With Patient Time: Total time managing care of this patient today ____ minutes.
--- NOTE | 2025-06-08 22:42 | PM.PSYDC ---
DS: Providers Provider Date of Service: 06/09/25 Date of admission: 06/05/25 22:17 Date of discharge: 06/09/25 Primary care physician: Nonstaff Physician Attending physician on admission: Tres Marquis Consults: 06/05/25 23:10 Consult to Hospitalist Routine Comment: Consulting Provider: [facility] Reason For Exam: new admit, H&P Attending physician on discharge: Tres Marquis DS: Diagnosis Discharge Diagnosis (1) Psychosis: Status: Acute DS: Medications Discharge Medications Home Medications: Home Medications ?Medication ?Instructions ?Recorded ?Confirmed No Known Home Meds 06/06/25 06/06/25 Data Data Completed and Pending Completed studies during hospitalization [Text1]: 06/06/25 08:06 Sodium 141 Potassium 4.2 Chloride 107 Carbon Dioxide 28 Anion Gap 10 L BUN 10 Creatinine 0.97 Estim Creat Clear Calc TNP Estimated GFR > 60 Random Glucose 108 Estimat Average Glucose 114 Hemoglobin A1c % 5.6 Calcium 9.4 Total Bilirubin 0.6 AST 46 H ALT 66 H Alkaline Phosphatase 56 Total Protein 7.1 Albumin 4.4 Triglycerides 71 Cholesterol 145 LDL Cholesterol, Calc 82 HDL Cholesterol 49 DS: Summary Time Spent with Patient Time attestation: Total time managing care of this patient today ____ minutes. Discharge Plan Discharge Anticipated Discharge Date/Time: 06/08/25 11:00 Patient Disposition: Home, Self-Care Discharge Diagnosis: brief psychotic disorder Referrals: [facility] [Other] - 1 Week Referral Note: Patient should contact agency should he reconsider accessing outpatient mental health services. Wednesday, Wednesday, Wednesday, , Wednesday from 8:00 AM to 8:00 PM for ALL age group(s) Wednesday from 9:00 AM to 5:00 PM for ALL age group(s) [facility] [Other] - 1 Week Referral Note: Patient should contact [facility] agency should he reconsider accessing outpatient mental health services. Wednesday, Wednesday, Wednesday, , Wednesday from 8:00 AM to 8:00 PM for ALL age group(s) Wednesday from 9:00 AM to 5:00 PM for ALL age group(s) [facility] [Other] - 1 Week Referral Note: Crisis services information. [facility] ? Call [phone], available 31/05 Physician,Nonstaff [Primary Care Provider, Medical] - 1 Week Discharge Medications: No Action No Known Home Meds Discharge Orders: Discharge Order (Routine); Ordered 06/09/25 Ordered By: Tres Marquis Diet: Regular diet Activity on Discharge: As tolerated Stand Alone Forms: Patient Portal Discharge page Print Language: Salvadorean Care Plan Goals: Maintain mood and safe behaviors Take medications as prescribed Continue to pursue sobriety Practice coping skills Continue with outpatient providers and reach out to them as needed Health Concerns: Mood stability and behaviors Sobriety Plan of Treatment: Follow up with your PCP, psychiatric provider and other outpatient providers regarding above concerns Assessment: Risk assessment at time of discharge:? Patient was interviewed prior to discharge and found to be fully oriented and without any SI or HI. Patient has improved insight and judgment and wants to continue treatment. Patient is not in imminent risk of harm to self or others and has a safety plan that includes presenting to the closest ER or calling 911 if feeling unsafe.? Patient has been observed closely by nursing and unit staff throughout admission; patient has not engaged in any behaviors that suggest dangerousness to self or others and has demonstrated appropriate behaviors and impulse control
--- NOTE | 2025-06-09 08:09 | PC.NURSE ---
Patient was in hallway, + Command AH, trying to go into another patient's room, unable to be redirected, They are telling me I need to go in there , persevering on the need to follow them , eventually did enter the other patient's room stood on one of the chairs looked around, then was able to be redirected off the chair and quickly exited the room.
--- NOTE | 2025-06-09 08:40 | P.PNPSI_ITS ---
Subjective Subjective Date of Service: 06/09/25 Reason For Visit: Psychosis Subjective Notes: 3 Day Healthcare Proxy: No Guardianship: No Medical Problems Affecting Mental Status: No (though alcohol withdrawal may have contributed) Interim History: Met with patient and his sister, voiced my concerns about him going today- it was a planned dc by dr uqesada who feels (and I agree) patient not commitable but continues at risk of further episodes - Nurrsing report patient was up all night and praying Pt reports that he was dozing in a chair sitting up and praying- Says this is consistent with his pentacostal upbringing which even my doesn't understand- However sister who picks him up today does- she is concerned that our findings are subjective- and feels fine about taking Jose Luis home today- We reviewed AA - and patient believes he will use his christianity to help him not return to alcohol. Medication Compliance: No (refused medications) Review of Systems Acute medical concerns: No Medical Review of Systems: unchanged Mental Status Exam Mental Status Exam Patient Appearance: Well Grooomed and Appropriate Patient Orientation: Person, Place, Time and Situation Level of Consciousness: Awake and Alert Patient Behavior: Appropriate, Cooperative and Good Eye Contact Mood Description: Calm Affect Description: Appropriate Patient Cognition Impaired: No Ability to Follow Directions: Good Speech Pattern: Clear Hallucinations: Auditory (? command - or consistent with pentacostal beliefs) Thought Content: positive for Intact and positive for Goal Oriented Depressive Symptoms: Insomnia Judgement: Fair Diagnostics Vital Signs (24Hr): Vital Signs - 24 hr 06/08/25 20:00 Temperature 96.7 F L Pulse Rate 99 Respiratory Rate 15 Blood Pressure 140/103 H Pulse Oximetry 98 Labs 06/06/25 08:06 Medications Medications Current Medications Acetaminophen (Acetaminophen 325 Mg Tablet) 650 mg PO Q6H PRN PRN Reason: Headache/Pain, Scale 1-10 Al Hydroxide/Mg Hydroxide (Magnesium Hydrox/Alum Hydrox 30 Ml Oral.Susp) 30 ml PO Q6H PRN PRN Reason: Heartburn/Nausea Hydroxyzine HCl (Hydroxyzine Hcl 25 Mg Tablet) 25 mg PO Q6H PRN PRN Reason: mild anxiety Magnesium Hydroxide (Milk Of Magnesia 30 Ml Oral.Susp) 30 ml PO DAILY PRN PRN Reason: Constipation Nicotine Polacrilex (Nicotine Polacrilex 2 Mg Gum) 4 mg BUCCAL Q2H PRN PRN Reason: Nicotine Cravings Olanzapine (Olanzapine 5 Mg Tablet) 5 mg PO Q4H PRN PRN Reason: agitation Trazodone HCl (Trazodone Hcl 50 Mg Tablet) 50 mg PO BEDTIME MRX1 PRN PRN Reason: Insomnia Allergies Allergies Allergy/AdvReac Type Severity Reaction Status Date / Time crab Allergy Severe Itching Verified 06/05/25 23:09 shellfish derived Allergy Fainting Verified 06/05/25 23:09 Assessment & Plan Assessment & Plan (1) Psychosis: Status: Acute Code(s): F29 - Unspecified psychosis not due to a substance or known physiological condition Plan Auditory hallucinations/psychosis Treatment per psychiatric team Prediabetes Recent A1c 5.6 Discussed diet and exercise with the patient. Thank you for allowing me to participate in the care of this patient. Signing off at this time. Please reconsult of any acute concerns or issues arise 06/09/25 - sister supportive- though patient maybe at risk if this is untreated psychosis of some kind- he doesn't appear to be risk to self or other or of self care at this moment- and so is discharged today as per dr quesada's order Patient educated on: diagnosis, medication risk/benefits and substance abuse Guardian/Caregiver educated on: diagnosis, medication risk/benefits and substance abuse Informed Consent: understands Reason for continued inpatient stay Substantial Risk for: stable for discharge Time Spent With Patient Time: Total time managing care of this patient today ____ minutes.
== END 2025-06-09 12:25 | disposition home or self-care (01) | DRG 885 ==
PROVIDERS: Registered Nurse; Admitting Provider Psychiatry & Neurology Psychiatry; Visit Provider Psychiatry & Neurology Psychiatry
DX: F23 Brief psychotic disorder (principal); R73.03 Prediabetes
CPT/HCPCS: 36415; 80053; 80061; 83036

== ENCOUNTER → 2025-06-05 22:17 | Outpatient (BNV) | payer OTHER, SELFPAY | PROVIDERS: Admitting Provider Psychiatry & Neurology Psychiatry; Visit Provider Psychiatry & Neurology Psychiatry | DX: F29 Unspecified psychosis not due to a substance or known physiological condition (principal); F33.0 Major depressive disorder, recurrent, mild; F10.90 Alcohol use, unspecified, uncomplicated | CPT/HCPCS: 90792; 99231; 99232; 99238; 99499 ==

== ENCOUNTER → 2025-06-05 22:17 | Outpatient (BNV) | payer OTHER, SELFPAY | PROVIDERS: Admitting Provider Psychiatry & Neurology Psychiatry; Visit Provider Nurse Practitioner Family | DX: F29 Unspecified psychosis not due to a substance or known physiological condition (principal) | CPT/HCPCS: 99221 ==